=== PATIENT | male | born 1965 | race Caucasian/White ===

== ENCOUNTER → 2016-11-20 | Outpatient (CLI) | payer OTHER ==
[~2016-11-20] MED LIST: COLACE-DPS100 MG PO; COREG DPS6.25 MG PO; KLOR-CON20 MEQ PO; LASIX DPS80 MG PO; PERIDEX15 ML PO; PROTONIX40 MG PO; XARELTO10 MG PO
== END | disposition home or self-care (01) ==
LOC: RAD.S 10:26
DX: R09.89 Other specified symptoms and signs involving the circulatory and respiratory systems (principal)

== ENCOUNTER 2017-02-06 09:31 | Inpatient (IN) | payer SELFPAY ==
[~2017-02-06] VITALS: Ht 165.1 cm; Wt 71.0 kg
--- NOTE | ~2017-02-06 | CO ---
ADMIT: 02/06/2017 RM/LOC: 315 [facility] MR#: [id number] 2620 [facility] [address] [place], [place] [address] [facility] [address] [address] Consultation SEX: M AGE: 51 : 1965 DATE OF CONSULTATION: 02/07/2017 ATTENDING PHYSICIAN: Camilo Chen CONSULTING PHYSICIAN: Kvng Lee MD HISTORY OF PRESENT ILLNESS: A 51-year-old, male with no previous medical history, specifically no history of coronary artery disease, pulmonary disease, nor liver disease, but known history of alcoholism, but quit 18 years ago, and is a current smoker. The patient's stated through an mold mover that he became dizzy, developed abdominal pain, headache, nausea, and vomiting for three days prior to his admission to [facility]. The patient's stated he became dizzy at work initially, and has had symptoms that have also included chills but no definite fever and some diaphoresis. He has been unable to sleep for the past 2 days, and had developed worsening shortness of breath that started occurring with exertion on 02/05/2017. The patient has not had definite sputum, and has had bowel movements daily that were formed up until yesterday. He has developed some bloody stools most recently in the ICU. PAST SURGICAL HISTORY AND PAST MEDICAL HISTORY: SURGERY AND OPERATIONS: None. ILLNESSES: No hypertension, diabetes, kidney disease liver disease, or previous pulmonary complications. ALLERGIES: NO KNOWN MEDICAL ALLERGIES. MEDICATIONS: None. FAMILY HISTORY: Father is alive at 97 years old. Mother at 43 years old from murder. SOCIAL HISTORY: . Alcohol; quit 18 years ago. Tobacco; started at 13 years old. Seven children alive and well. Works in construction. REVIEW OF SYSTEMS: Twelve-point review completed as above. PHYSICAL EXAMINATION: GENERAL: Awake, on BiPAP, sats 100%. The BiPAP was 10/5, rate set at 10, breathing 22, tidal volume is 750, and minute ventilation is 17 L/minutes. VITAL SIGNS: Temperature 97.2, pulse 69, respiratory rate 21, blood pressure 95/75. HEENT: Limited exam, but dry and clear. No lymphadenopathy or JVD. HEART: Regular rate and rhythm. LUNGS: Breath sounds were clear anteriorly, decreased in the bases, slightly ADMIT: 02/06/2017 RM/LOC: 315 [facility] MR#: [id number] [address] [address] [facility] [address] [place], [place] [id number] Consultation SEX: M AGE: 51 : 1965 prolonged expiratory phase. ABDOMEN: Distended, slightly tender diffusely. No definite hepatosplenomegaly. EXTREMITIES: No clubbing or cyanosis, but 1+ edema. NEURO: Motor and sensory grossly intact. LABORATORY: Sodium 135, potassium 6.1, BUN 42, creatinine 3.9, glucose 179. Anion gap is 23. ABG is 7.14, pCO2 is 29, PO2 is 83 on 2 L nasal cannula. Total bilirubin is 4.0, albumin 2.9. Lipase 253, amylase 442. AST was 57 on 02/06/2017 and now 5830. ALT was 48 on 02/06/2017 now 2494. Alkaline phosphatase is normal. Troponin 0.49. TSH 1.18. ProBNP on 02/06/2017 was 2175. WBC 29.0, hemoglobin 16.0, platelet 118. MCV 103. RDW is 15.7. Lactate is 10.3. Magnesium is 2.5. Procalcitonin is 8.91. EKG, normal sinus rhythm 50-99 with interventricular conduction delay and anterior Q-waves. Chest x-ray shows cardiomegaly with mild peribronchial cuffing centrally. CT abdomen and pelvis, fluid-filled stomach, nodularity of liver, and diverticulosis. I's and O's: Intake has been none. Outputs 200 mL. ASSESSMENT AND RECOMMENDATION: 1. Acute respiratory failure: This is due to metabolic acidosis, specifically elevated lactate of 10.3, (presumably combination of both infection, ischemia, and liver disease), and renal failure. Anion gap is 23. The patient has been able to come off BiPAP and respiratory rate has been 20 to 24, sats 99% on 2 L. 2. Acute hepatitis: The patient has a marked elevation of LFTs with AST to ALT ratio greater than 2. He has a normal alkaline phosphatase, and ultrasound of the abdomen reveals essentially normal common bile duct, but small amount of pericholecystic fluid. The patient has been noted to have small amount of blood in the stool, so this may be diverticulosis, and briefly this has been discussed with Surgery about future evaluation. 3. Acute renal failure: The patient has had no significant urine output. He is currently on IV fluids at 100 mL/hour, and dopamine is planned. 4. Congestive heart failure: Uncertain whether this is ischemic. Troponins are elevated, though the creatinine is also elevated. EKG shows Q-wave changes which would support the above. However, he has not had any previous history of coronary artery disease known. Cardiology is following and recommending dopamine as an initial agent. ADMIT: 02/06/2017 RM/LOC: 315 [facility] MR#: [id number] [address] [place] [id number] [facility] [address] [place] [address] Consultation SEX: M AGE: 51 : 1965 5. Probable cirrhosis: The patient has had an extensive history and nodularity is noted. Uncertain whether he has hepatorenal syndrome as part of ischemic process as well. 6. The patient represents a complicated presentation, but the unifying diagnosis may surround alcohol. He will undergo a PT and PTT, and his presentation may be due to acute hepatitis secondary to same. 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 The patient's case was discussed with Dr. Rothman, respiratory therapy, nursing staff, and patient's family through an mold mover, and Dr. Garcia in Radiology. Ongoing recommendations will be forthcoming. The patient's critical care was greater than 2 hours in total. Kvng Lee MD/ chloe JOB #: [id number] CC: Camilo Chen, Attending Physician Camilo Chen, Family Physician
--- NOTE | ~2017-02-06 | ECH ---
Transthoracic Echocardiography Report (TTE) Demographics Patient Name LLOYD MITCHELL, Date of Study 02/06/2017 [facility] Patient Number [id number] Visit Number [id number] Date of 1965 Room Number 419 Gender Male Number Age 51 year(s) Referring Gustavo Resendiz MD Welt Trimming Machine Operator Crystal Dixon [facility] Physician Ramo Chawla Physician Interpreting Oneyda Schumacher MD School Counselor Physician Supervising Ordering Gustavo Resendiz MD, MD/P Physician Nurse Stress Planting Material Carrier Conclusions Summary Technically adequate exam. The estimated left ventricular ejection fraction is 20-25%. The left ventricle is mildly dilated . Mild left ventricular hypertrophy. Diastolic function indeterminate. Normal right ventricle structure and function. The left atrium is severely dilated by LA volume index measurement. The right atrium is moderate to severely dilated. Severe mitral regurgitation by color Doppler. There is mild aortic regurgitation by color Doppler. Moderate-severe tricuspid regurgitation by color Doppler. There is moderate pulmonary hypertension. The pulmonary pressure (RVSP) is 52 mmHg. Trivial pulmonic valve regurgitation by color Doppler. Procedure Type of Study TTE procedure:Echo Complete SF. Procedure Date Date: 02/06/2017 Start: 04:02 PM Technical Quality: Adequate visualization Indications:Atrial flutter and Dizziness. Appropriate Use Criteria: 9 Height: 65 inches Weight: 170 pounds BSA: 1.85 m Rhythm: Within normal limits HR: 87 bpm BP: 197/76 mmHg M-Mode/2D Measurements LV Diastolic Dimension: 6.08 cm LV Systolic Dimension: 4.72 cm LV Septum Diastolic: 1.03 cm LV PW Diastolic: 0.95 cm AO Root Dimension: 2.37 cm Cardiac Output: 1.94 l/min LA Dimension: 4.87 cm Cardiac Index: 1.05 l/min*m RV Diastolic Dimension: 3.56 cm LA volume index: 60 ml/m LVOT: 1.65 cm LVOT VTI: 10.45 cm RV Base: 3.7 cm LV Stroke volume: 22.33 ml RV Mid: 3.2 cm LV Stroke volume index: 12.07 ml/m RV Length: 7.6 cm TAPSE: 1.6 cm TDI-S': 10 cm/s Doppler Measurements AV Peak Velocity: 1.37 m/s MV Peak E-Wave: 1.27 m/s AV Peak Gradient: 7.5 mmHg AV Mean Gradient: 3.41 mmHg LVOT Peak Velocity: 0.75 m/s AV Area (Continuity):1.83 cm AV P1/2t: 438 msec PV Peak Velocity: 0.68 m/s TR Velocity:3.42 m/s PV Peak Gradient: 1.87 mmHg TR Gradient:46.85 mmHg Estimated PASP: 51.85 mmHg Estimated RAP:5 mmHg Estimated RVSP: 52 mmHg RA Area: 23.49 cm Findings Left Ventricle The left ventricle is mildly dilated . Mild left ventricular hypertrophy. Diastolic function indeterminate. Right Ventricle Normal right ventricle structure and function. Left Atrium The left atrium is severely dilated by LA volume index measurement. Right Atrium The right atrium is moderate to severely dilated. Mitral Valve Normal mitral valve structure and function. Moderate-severe mitral regurgitation by color Doppler. Aortic Valve The aortic valve was not well imaged. There is mild aortic regurgitation by color Doppler. Tricuspid Valve Normal appearing tricuspid valve. Moderate-severe tricuspid regurgitation by color Doppler. There is moderate pulmonary hypertension. The pulmonary pressure (RVSP) is 52 mmHg. Pulmonic Valve Normal pulmonic valve structure and function. Trivial pulmonic valve regurgitation by color Doppler. Pericardial Effusion No evidence of pericardial effusion. Miscellaneous Visualized portions of the aortic root and ascending aorta appear normal in size. Pleural Effusion No evidence of pleural effusion. Contractility Score LV regional wall motion:(0-Non visualized 1-Normal 2-Hypokinesis 3-Akinesis 4-Dyskinesis 5-Aneurysm) Signature
--- NOTE | 2017-02-07 08:22 | ER ---
ADMIT: 02/06/2017 RM/LOC: 419 [facility] MR#: [id number] 2620 [facility] [address] [place], [place] [address] [facility] [address] [address] Emergency Room Report SEX: M AGE: 51 : 1965 DATE: 02/06/2017 ADDENDUM: A 51-year-old male coming in with little dizziness, palpitations, his rate is like 165. He has had this on and off for several months. Initially it looked like SVT. We gave him adenosine, did not convert him but slowed him down enough. I could see that he had atrial fibrillation/flutter. Started him on Cardizem drip, we got him down below 100. He is a little short of breath. His BNP was up at 2175. Troponin is 0.078. EKG nothing acute. His TSH was negative, CBC and chemistry as well. I spoke with Dr. Chen, he is going to admit him. CONDITION ON DISCHARGE: Improving. Nathan Rowell MD/ chloe JOB #: [id number] CC: Camilo Chen DO, Attending Physician Camilo Chen DO, Family Physician
--- NOTE | 2017-02-13 07:19 | CO ---
ADMIT: 02/06/2017 RM/LOC: 315 [facility] MR#: [id number] 26[address] [facility] [address] [place], [place] [address] [facility] [address] [address] Consultation SEX: M AGE: 51 : 1965 DATE OF CONSULTATION: 02/06/2017 ATTENDING PHYSICIAN: Camilo Chen CONSULTING PHYSICIAN: Denton Ralph MD REASON FOR CONSULTATION: New onset atrial flutter. Geena Morfin RN, scribing for Denton Ralph MD. HISTORY OF PRESENT ILLNESS: Chetan is a pleasant 51-year-old gentleman I have been asked to see in Cardiology consultation by Dr. Chen for new onset atrial flutter. He has no prior history of coronary artery disease, he takes no home medications, and denies any history of any surgeries. He is a smoker for several years. He reports that he has siblings who had myocardial infarctions, but none of them have and none of them had stents or bypass. He presented to [facility] today with complaints of palpitations and just generalized fatigue. He states he has noted palpitations off and on for the last year but today, it was more severe than what he had normally experienced. He said about a month and half ago, he was evaluated for pneumonia, he did not have any significant arrhythmias that he is aware of at that time, he was treated as an outpatient. He stated that today, he went to work but he had to leave work early because he was so fatigued. He did note some chest tightness and abdominal pain, and continues to have those symptoms despite converting to sinus rhythm on Cardizem drip. He is currently maintaining sinus rhythm. Cardiac enzymes x1 did show mild elevation of troponin at 0.078, CK and MB were normal. ProBNP was 2175. Other lab work was essentially unremarkable. Vital signs are stable. Thyroid level is normal at 1.18. EKG demonstrates sinus rhythm with no significant ST-T changes. PAST MEDICAL HISTORY: No documented history of chronic illness. He is a tobacco user. PAST SURGICAL HISTORY: No surgeries. ALLERGIES: NO KNOWN MEDICATION ALLERGIES. MEDICATIONS: No home medications. Currently, he is on a Cardizem drip at 10 mg an hour. FAMILY HISTORY: The patient reports family history of all his siblings having heart attacks, stating that they are all living and none of them had any intervention of stents or bypass, questionable history of coronary disease. Does report cousins having history of pacemakers. SOCIAL HISTORY: Chetan is . He lives at home with his . He does construction work with stone work. He denies any alcohol or drug use. He does smoke cigarettes on a daily basis and is wanting to quit. He denies any special diet. ADMIT: 02/06/2017 RM/LOC: 315 [facility] MR#: [id number] [address] [address] [facility] [address] [place] [address] Consultation SEX: M AGE: 51 : 1965 REVIEW OF SYSTEMS: GENERAL: Reports increased fatigue over the last few days. No recent fever, chills, or sweats or weight changes that he is aware of. EYES: Denies double vision, blurred vision, cataracts, or glaucoma. ENT: Denies hearing loss or problems with nose, mouth or throat. PULMONARY: Denies cough, sputum production, asthma, emphysema or bronchitis. Denies snoring loudly, wakefulness at night, or fatigue upon awakening. Reports increased shortness of breath. GASTROINTESTINAL: Denies heartburn or difficulty swallowing. No change in bowel habits. Denies dark or bloody stools. No history of ulcers, hiatal hernia, or gallbladder or liver disease. Abdominal discomfort and distention. GENITOURINARY: Denies dysuria, hematuria, nocturia, urinary tract infection, or kidney stones. Denies history of renal insufficiency or failure. MUSCULOSKELETAL: Denies history of arthritis or gout. Denies muscle or joint pains. ENDOCRINE: Denies history of thyroid dysfunction or diabetes. HEMATOLOGIC: Denies history of anemia, easy bruising, or cancer. NEUROLOGIC: Denies chronic headaches, dizziness, syncope, stroke, seizures or numbness or tingling. PSYCHIATRIC: Denies history of mental illness or feelings of depression. PHYSICAL EXAMINATION: VITAL SIGNS: Blood pressure 107/76, heart rate 91, respirations 20, temperature 97.0, oxygenation 94% on O2. GENERAL: No acute distress, but does appear uncomfortable. SKIN: [place], warm and dry. EYES: Sclerae clear. No xanthelasmas. ENT: Oral mucosa is pink and moist. No jugular venous distention or carotid bruits. CHEST: Respirations are even and unlabored. Lungs are clear to auscultation. HEART: Regular rate and rhythm. Normal S1, S2. No murmurs, rubs or gallops. ABDOMEN: Obese, mildly tender epigastric area. MUSCULOSKELETAL: Gait is normal. EXTREMITIES: Peripheral pulses palpable. No clubbing, cyanosis or edema. PSYCHIATRIC: Alert and oriented. Mood and affect are appropriate. DIAGNOSTIC DATA: Sodium 138, potassium 4.4, BUN 28, creatinine 1.3, glucose 120, magnesium 2.3. AST 57, ALT 48. ProBNP 2175. CK 188, MB 3.1. Troponin 0.078. TSH 1.18. White blood cell count 10.1, hemoglobin 17.4, hematocrit 50.6, platelets 205. ASSESSMENT AND PLAN: 1. Atrial flutter, difficult to tell from history when this started. He converted back to sinus rhythm now. We will start p.o. beta-rene with metoprolol 25 p.o. b.i.d., first dose now, and Lovenox 1 mg/kg subcutaneous q.12 hours, first dose now. I will change his anticoagulation to NOAC in a.m. if no other procedures needed. His TSH is normal. In the future, he may need an EP consult for possible ablation. I will check echocardiogram for wall motion abnormalities, valvular ADMIT: 02/06/2017 RM/LOC: 315 [facility] MR#: [id number] 2620 [facility] [address] [place] [id number] [facility] [address] [facility] [address] [place] [address] Consultation SEX: M AGE: 51 : 1965 abnormalities, or decreased ejection fraction. 2. Indeterminate troponin, likely secondary to rapid ventricular response. I will continue to check serial enzymes; if they trend down, then would do stress test as an outpatient; if they elevate, he may need cardiac catheterization. 3. Abdominal pain. Check amylase and lipase at this point, I will keep him n.p.o. after midnight in case he needs a procedure with elevated cardiac enzymes in the morning. Thank you for the consultation. I have read and agree with the documentation that has been completed regarding this visit. By signing this record, I attest that the documentation was completed in my physical presence and is an accurate record of the encounter. Geena Morfin RN / Denton Ralph MD / chloe JOB #: [id number] CC: Camilo Chen, Attending Physician Camilo Chen, Family Physician
[2017-02-14] MEDS ORDERED: LASIX DPS80 MG PO (10:39)
[2017-02-14] MEDS ORDERED: PERIDEX15 ML PO (10:39)
[2017-02-14] MEDS ORDERED: COLACE-DPS100 MG PO (10:39)
[2017-02-14] MEDS ORDERED: COREG DPS6.25 MG PO (10:39)
[2017-02-14] MEDS ORDERED: PROTONIX40 MG PO (10:40)
[2017-02-14] MEDS ORDERED: XARELTO10 MG PO (10:40)
[2017-02-14] MEDS ORDERED: KLOR-CON20 MEQ PO (10:41)
--- NOTE | 2017-02-14 11:53 | CO ---
ADMIT: 02/06/2017 RM/LOC: 315 [facility] MR#: [id number] 2620 [facility] [address] [place], [place] [address] [facility] [address] [address] Consultation SEX: M AGE: 51 : 1965 DATE OF CONSULTATION: 02/07/2017 ATTENDING PHYSICIAN: Camilo Chen CONSULTING PHYSICIAN: Adria Mar MD REASON FOR CONSULTATION: Hyperkalemia and elevated creatinine, need for temporary dialysis catheter. HISTORY OF PRESENT ILLNESS: Chetan is a very pleasant Albanian-speaking 51- year-old male, who states that he has felt dizzy on and off for the last year, but is getting progressively worse. Because of his symptoms, he decided to seek medical attention at our ER, where apparently he was found to be in AFib with RVR. He has now been admitted to the hospital and fully worked up. During the assessment, it was noted that the patient was acidotic. Creatinine has also been increasing since then to 4.3. Potassium has also been increasing with the last value of 7.1. Apparently, he did not follow with doctor and has not taken care of himself. He does state on and off chills and some abdominal pain in his lower abdomen. He denies any nausea. PAST MEDICAL HISTORY: No significant history, but during his assessment, he was found to be in AFib with RVR and concern for cirrhosis of his liver upon CAT scan. PAST SURGICAL HISTORY: No prior surgeries. ALLERGIES: NO KNOWN DRUG ALLERGIES. MEDICATIONS: No home medications. FAMILY HISTORY: Noncontributory. SOCIAL HISTORY: The patient is a tobacco user, 1 pack gets him through about 2 days. Denies any alcohol or illicit drug use. REVIEW OF SYSTEMS: HEAD: The patient states headache that started about 30 minutes ago, but denies any current dizziness or lightheadedness. The rest of comprehensive 10-point review of systems was performed and otherwise unremarkable unless stated in HPI. PHYSICAL EXAMINATION: GENERAL: The patient is in no acute distress. He is alert and oriented. HEENT: Head is normocephalic and atraumatic. EOMs are intact. Conjunctivae free of icterus, erythema, or pallor. Pinnae, free of deformities. Nose, midline. No tracheal deviation. NECK: Supple. SKIN: Negative for jaundice, clubbing, edema, pallor, or cyanosis. LUNGS: Normal respiratory effort. ADMIT: 02/06/2017 RM/LOC: 315 [facility] MR#: [id number] [address] [address] [facility] [address] [address] Consultation SEX: M AGE: 51 : 1965 HEART: Distal pulses intact. Regular rate and rhythm now. ABDOMEN: Distended, but soft. Tender diffusely in abdomen with exquisite tenderness in the left lower quadrant and right lower quadrant. NEURO: Grossly intact. LABORATORY DATA: Please see HPI. INR 3.25. ASSESSMENT: 1. Hyperkalemia and elevated creatinine, need for temporary dialysis catheter. 2. Cirrhosis. 3. History of atrial fibrillation with rapid ventricular response. PLAN: Given the patient's elevated INR, we are going to type and cross him for 2 units of FFP now and hopefully get the dialysis catheter in place. I discussed the risks, alternatives, benefits, and complications of the catheter placement with the patient and his family who was present during my whole assessment. They are in agreement of this plan, had all their questions answered and would like to proceed. Dr. Mar will perform this later tonight. We will go from there. Thank you for the consultation of this patient. JULIETTE Linares / Adria Mar MD / chloe JOB #: [id number] CC: Camilo Chen, Attending Physician Camilo Chen, Family Physician
--- NOTE | 2017-02-15 11:29 | CO ---
ADMIT: 02/06/2017 RM/LOC: [address] [facility] MR#: [id number] [id number] [place], [place] [id number] [facility] [address] [address] Consultation SEX: M AGE: 51 : 1965 DATE OF CONSULTATION: 02/07/2017 ATTENDING PHYSICIAN: Camilo Chen CONSULTING PHYSICIAN: Lorraine Rothman MD REASON FOR CONSULTATION: Acute kidney injury and hyperkalemia. HISTORY OF PRESENT ILLNESS: The patient is a 51-year-old male who has not had much medical care. He presented to the hospital yesterday with atrial fibrillation and rapid ventricular response. He was evaluated by Cardiology and was put on rate controlling agents. He was also put on Lovenox for anticoagulation. He deteriorated overnight and was transferred to the ICU. He is hypotensive currently with blood pressure in the 60s systolic. He reports being dizzy. He is on BiPAP and is able to answer questions in a yes or no. Family is at his bedside who gives me the rest of the history. He first complained of shortness of breath about 3 days ago. He has been feeling weak and has been pretty much lying in bed for the last 2 days. He was eventually brought to the hospital yesterday. There are no documented fevers at home. He had been having a cough. The patient reports having some orthopnea. Dizziness is his predominant complaint. He denies any over-the- counter medications other than Tylenol. He feels weak. He complains of abdominal bloating. He denies any urinary complaints. REVIEW OF SYSTEMS: A complete review of systems is negative in detail except as mentioned in the history of present illness above. PAST MEDICAL HISTORY: Denies any medical illnesses, but again, he has never sought much medical care. ALLERGIES: NO KNOWN DRUG ALLERGIES. MEDICATIONS: None as an outpatient. SOCIAL HISTORY: He is . He works in construction. Smokes about a pack of cigarettes every 2 days. Denies any alcohol use. Denies any recreational drug use. FAMILY HISTORY: No family history of chronic kidney disease or renal replacement therapy. There is a strong family history of cardiac disease. PHYSICAL EXAMINATION: VITAL SIGNS: Temperature 97.7 Fahrenheit, pulse 69, blood pressure 95/71. GENERAL: He is in bed and is on BiPAP. HEENT: Head is nontraumatic and normocephalic. Extraocular movements are intact. CHEST: Clear to auscultation. CARDIOVASCULAR SYSTEM: Regular rhythm. S1 and S2 heard. No rubs, murmurs, or gallops. ADMIT: 02/06/2017 RM/LOC: [address] [facility] MR#: [id number] [address] [id number] [facility] [place] [address] Consultation SEX: M AGE: 51 : 1965 ABDOMEN: Soft and distended. EXTREMITIES: No edema. SKIN: No rash or nodules. NEUROLOGIC: He is able to move all his extremities. PSYCHIATRIC: Unable to assess. MUSCULOSKELETAL: Major joints are within normal limits. Range of motion within normal limits. LABORATORY DATA: Reviewed. BMP with sodium 135, potassium 6.1, CO2 is 9, creatinine 3.9. Hemoglobin is 16.1, white count of 29. Calcium 8, total bilirubin was 4, albumin 2.9, AST was 5830, ALT was 2444. His lactate was 10.3. Amylase was 442, lipase was 253. His pH is 7.143, pCO2 of 29. IMAGING: His chest x-ray showed small bilateral pleural effusions. ASSESSMENT AND PLAN: 1. Acute kidney injury - secondary to ischemic acute tubular necrosis. 2. Cardiogenic shock. 3. Lactic acidosis/metabolic acidosis. 4. Multiorgan failure. 5. Hyperkalemia. I discussed his case with Cardiology. He has an EF of around 20%. We plan to start dopamine to help with perfusion. He will need access, and I will request a PICC line. He has already received insulin/D50 along with calcium gluconate for management of his hyperkalemia. He may need renal replacement therapy depending on his clinical course. I discussed this with his family who were agreeable to this. His acidosis is predominantly lactic acidosis. We will monitor this and hope to see an improvement if his perfusion improves. He remains critically ill, and his prognosis is guarded. Thank you for this consultation. Please do not hesitate to contact with any questions. Lorraine Rothman MD/ chloe JOB #: [id number] CC: Camilo Chen, Attending Physician Camilo Chen, Family Physician
--- NOTE | 2017-02-21 07:55 | HP ---
ADMIT: 02/06/2017 RM/LOC: [address] [facility] MR#: [id number] [id number] [facility] [address] [place], [place] [id number] [facility] [address] [address] History and Physical SEX: M AGE: 51 : 1965 DATE OF SERVICE: 02/07/2017 REASON FOR HOSPITALIZATION: Atrial flutter, rapid ventricular response. HISTORY OF PRESENT ILLNESS: A 51-year-old, male patient, who came to the emergency room feeling lightheaded and dizzy with palpitations and was found to be in atrial flutter with rapid ventricular response. He was subsequently admitted to the telemetry floor where Cardiology saw him and began working with his medications. The patient takes no home medications. SOCIAL HISTORY: He is . Works in construction. He is , does not speak Turkish. FAMILY HISTORY: Noncontributory. REVIEW OF SYSTEMS: Abdominal discomfort, general sense of dizziness and malaise, lightheadedness, palpitations, some chest discomforts, and initially no nausea vomiting, diarrhea, or bleeding. PHYSICAL EXAMINATION: VITAL SIGNS: At presentation, blood pressure is 107/76, he was afebrile. HEART: Regular. His rate was within normal range by the time of my initial visit. LUNGS: Clear. He had epigastric tenderness. ABDOMEN: Round but soft. LABORATORY DATA: He had a white count 10.7. With impression of atrial flutter and abdominal pain he was admitted. Cardiology has been consulted. He is going to undergo ultrasound of the abdomen. We will check pancreatic enzymes. In the ensuing 12 hours, he has had decline in status. His abdomen has becoming increasingly distended, his blood pressure has dropped, his urine has dropped, and his renal function has worsened. I have now transitioned him to the intensive care unit with diagnosis of sepsis, DEENA, hyperkalemia, pancreatitis, and acidosis. He will be supported, cultured, given broad-spectrum antibiotic therapy. We will ask Dr. Rothman to see and evaluate as well as Dr. Lee, for respiratory support. He does currently have a white count of 29, and an amylase of 442 with an elevated lactate of 10. Camilo Chen, DO/ modl JOB #: [id number] CC: Camilo Chen, Attending Physician Camilo Chen, Family Physician
== END 2017-02-13 14:32 | disposition home or self-care (01) | DRG 871 ==
LOC: ER 09:31 → 3ICU 13:04 → 4PCU 13:04 → 3ICU 02-07 06:58 → 4PCU 02-11 18:20
PROVIDERS: ADMIT Internal Medicine
PROC: 5A09357 Assistance with Respiratory Ventilation, Less than 24 Consecutive Hours, Continuous Positive Airway Pressure (ICD-10-PCS; principal; 2017-02-07)
PROC: 3E043XZ Introduction of Vasopressor into Central Vein, Percutaneous Approach (ICD-10-PCS; principal; 2017-02-07)
PROC: 02HV33Z Insertion of Infusion Device into Superior Vena Cava, Percutaneous Approach (ICD-10-PCS; principal; 2017-02-07)
DX: A41.9 Sepsis, unspecified organism (principal); K85.90 Acute pancreatitis without necrosis or infection, unspecified; N17.0 Acute kidney failure with tubular necrosis; J96.00 Acute respiratory failure, unspecified whether with hypoxia or hypercapnia; I50.21 Acute systolic (congestive) heart failure; E87.2 Acidosis; I42.9 Cardiomyopathy, unspecified; D69.6 Thrombocytopenia, unspecified; I82.621 Acute embolism and thrombosis of deep veins of right upper extremity; I48.92 Unspecified atrial flutter; B37.0 Candidal stomatitis; R65.20 Severe sepsis without septic shock; K75.9 Inflammatory liver disease, unspecified; I34.0 Nonrheumatic mitral (valve) insufficiency; K70.30 Alcoholic cirrhosis of liver without ascites; E83.42 Hypomagnesemia; E87.6 Hypokalemia; F17.210 Nicotine dependence, cigarettes, uncomplicated; E87.5 Hyperkalemia; Z82.49 Family history of ischemic heart disease and other diseases of the circulatory system

== ENCOUNTER → 2017-02-20 | Outpatient (CLI) | payer SELFPAY | END | disposition home or self-care (01) | LOC: PTH.S 08:14 | DX: I82.621 Acute embolism and thrombosis of deep veins of right upper extremity (principal); E87.6 Hypokalemia; K75.9 Inflammatory liver disease, unspecified ==